=== PATIENT | female | born 1995 | race African-American/Black ===

== ENCOUNTER 2022-03-28 13:57 | Emergency (ER) | payer MEDICAID ==
[~2022-03-28] VITALS: Ht 157.5 cm; Wt 56.7 kg
[2022-03-28 14:01] VITALS: BP 125/67
[2022-03-28] MEDS ORDERED: BUSP10TA35 PO (14:11)
[2022-03-28] MEDS ORDERED: QUET400T PO (14:11)
[2022-03-28] MEDS ORDERED: NALT50TA PO (14:11)
[2022-03-28] MEDS ORDERED: LITH600C PO (14:11)
[2022-03-28] MEDS ORDERED: OMEG1CAP PO (14:11)
[2022-03-28] MEDS ORDERED: DIPH50CA4 PO (14:11)
[2022-03-28] MEDS ORDERED: QUET100T PO (14:11)
[2022-03-28] MEDS ORDERED: BENZ0.5T43 PO (14:11)
[2022-03-28] MEDS ORDERED: OLANZAPINE 5 MG TABLET PO ONE (14:30)
[2022-03-28 14:54] LABS: BILIRUBIN,URINE NEGATIVE (NEGATIVE); COLOR,URINE YELLOW (YELLOW); LEUKOCYTE ESTERASE ,URINE NEGATIVE (NEGATIVE); NITRITE, URINE NEGATIVE (NEGATIVE); PH,URINE 6.5 (5.0-8.0); PROTEIN,URINE NEGATIVE (NEGATIVE); UGLUCOSE NEGATIVE (NEGATIVE); UROBILINOGEN,URINE 0.2 EU/dL (0.2)
[2022-03-28 15:06] LABS: BASOPHILS % (AUTO) 0.3 % (0.0-2.0); EOSINOPHILS % (AUTO) 0.3 % (0.0-6.0); HEMATOCRIT 33 % (33-45); LYMPHOCYTES # (AUTO) 1.6 K/uL (0.8-4.8); LYMPHOCYTES % (AUTO) 32.4 % (20.0-44.0); MEAN CORPUSCULAR HGB CONC 33 g/dl (31.0-36.0); MEAN CORPUSCULAR VOLUME 82 fL (82-100); MONOCYTES # (AUTO) 0.6 K/uL (0.1-1.30); MONOCYTES % (AUTO) 11.3 % (2.0-12.0); NEUTROPHILS # (AUTO) 2.8 K/uL (1.8-8.9); NEUTROPHILS % (AUTO) 55.7 % (43.0-81.0); PLATELET COUNT (AUTO) 253 K/uL (150-450); RED BLOOD CELL COUNT(AUTO) 4.05 MIL/uL (4.0-5.2); WHITE BLOOD COUNT (AUTO) 5.1 K/uL (4.3-11.0)
[2022-03-28 15:28] LABS: ALANINE AMINOTRANSFERASE 28 U/L (12-78); ALBUMIN 3.2 g/dL (3.4-5.0); ALCOHOL, BLOOD < 3 mg/dL (0-0); ALKALINE PHOSPHATASE 112 U/L (46-116); ASPARTATE AMINOTRANSFERASE 23 U/L (15-37); BILIRUBIN,DIRECT 0.1 mg/dL (0.0-0.2); BILIRUBIN,TOTAL 0.5 mg/dL (0.2-1.0); CALCIUM, SERUM 9.2 mg/dL (8.5-10.1); CARBON DIOXIDE 31 mmol/L (21-32); CHLORIDE 103 mmol/L (98-107); CREATININE 0.5 mg/dL (0.6-1.3); GLUCOSE 108 mg/dL (74-106); SODIUM SERUM 138 mmol/L (136-145); TOTAL PROTEIN, SERUM 6.5 g/dL (6.4-8.2); UREA NITROGEN, BLOOD 14 mg/dL (7-18)
[2022-03-28 15:29] LABS: ACETAMINOPHEN < 0 ug/ml (10-30)
[2022-03-28] MEDS ORDERED: OLANZAPINE 5 MG TABLET ONE (15:32)
== END 2022-03-28 17:22 | disposition left against medical advice (07) ==
LOC: ER 13:58
DX: F22 Delusional disorders (principal); J45.909 Unspecified asthma, uncomplicated; Z20.822 Contact with and (suspected) exposure to COVID-19; Z53.20 Procedure and treatment not carried out because of patient's decision for unspecified reasons
CPT/HCPCS: 36415; 80048; 80076; 80143; 80307; 80320; 81003; 84703; 85025; 87426; 99283; C9803; G0480